=== PATIENT | female | born 1970 | race Caucasian/White ===

== ENCOUNTER 2017-11-21 14:41 | Outpatient (CLI) ==
[2017-11-21 16:11] VITALS: BMI 30.4
== END 2017-11-21 14:42 | disposition home or self-care (01) ==
LOC: DIETCN 14:41
PROVIDERS: ATTEND Family Medicine
DX: E66.9 Obesity, unspecified (principal)

== ENCOUNTER 2018-01-04 08:55 | Emergency (ER) ==
[2018-01-04 09:04] VITALS: BP 147/94; TEMP 98; BMI 29.5
--- NOTE | 2018-01-04 09:56 | CT ---
EXAM: CT scan head without contrast. HISTORY: Left facial and arm numbness COMPARISON: None. TECHNIQUE: Axial scans acquired 5 mm slice thicknesses. MPR coronal and sagittal sequence completed FINDINGS: There is no subdural hematoma or intracranial hemorrhage seen. There is no shift of midli ne structures. Brewer-white matter differentiation is maintained. Ventricles are normal in size. The paranasal sinuses and mastoid air cells appear clear. IMPRESSION: No acute intracranial finding No intracranial hemorrhage, CVA, mass or hydrocephalus is seen. If there is persisting numbness and more detailed assessment of the neural structures is clinically i ndicated , consider follow-up non emergent MRI.
--- NOTE | 2018-01-04 10:06 | ED.PDOC ---
General ED Provider: Dr. CORNELIUS MEJIA Chief Complaint: Non-specific Complaint Stated Complaint: Patient comes to the Er with complaints of chest pain that started 2 weeks ago and has been intermitent. Today she woke up with left facial numbness and left arm numbness. Denies any weakness. Rates the chest pain as 5/10 Denies any Shortness of breath nausea or vomiting. Has had intermitent climecteric symptoms due to initiation of memopause. Time Seen by Physician: 09:00 Information Source: Patient Primary Care Provider: BRYAN WILKINS Nursing and Triage Documentation Reviewed and Agree: Yes Does patient meet sepsis criteria?: No System Inflammatory Response Syndrome: Not Applicable Sepsis Protocol: For patient's 13 years and over: Temp is 96.8 and below OR 101 and greater Pulse >90 BPM Resp >20/minute Acutely Altered Mental Status Are patient's symptoms suggestive of a new infection, such as: -Pneumonia -Skin, Soft Tissue -Endocarditis -UTI -Bone, Joint Infection -Implantable Device -Acute Abdominal Infection -Wound Infection -Meningitis -Blood Stream Catheter Infection -Unknown Review of Systems - Review Of Systems Constitutional: Reports: Sweats Eyes: Reports: No symptoms Ears, Nose, Mouth, Throat: Reports: No symptoms Respiratory: Reports: No symptoms Cardiac: Reports: Chest pain GI: Denies: Nausea, Vomiting : Reports: No symptoms Musculoskeletal: Reports: No symptoms Skin: Reports: No symptoms Neurological: Reports: Anxiety, Numbness (Left face and left arm) Endocrine: Reports: No symptoms Hematologic/Lymphatic: Reports: No symptoms All Other Systems: Reviewed and Negative Past Medical History - Past Medical History Previously Healthy: Yes Endocrine: Reports: None Cardiovascular: Reports: None Respiratory: Reports: None Hematological: Reports: None Gastrointestinal: Reports: None Genitourinary: Reports: None Neuro/Psych: Reports: None Musculoskeletal: Reports: None Cancer: Reports: None Last Menstrual Period: unknown - Surgical History General Surgical History: Reports: Hysterectomy, Cholecystectomy - Family History Family History: Reports: None - Social History Smoking Status: Former smoker Hx Substance Use: No Alcohol Screening: None Physical Exam - Physical Exam Appearance: Ill-appearing Ill-appearing: Mild Pain Distress: Moderate Neck: Supple Respiratory: Airway patent, Breath sounds clear, Breath sounds equal, Respirations nonlabored Cardiovascular: RRR, Pulses normal, No rub, No murmur GI/: Soft, Nontender, No masses, Bowel sounds normal, No Organomegaly Musculoskeletal: Normal strength, ROM intact, No edema, No calf tenderness Neurological: Alert, Oriented Psychiatric: Anxious Interpretation - Radiology Interpretation Radiology Interpretation By: Radiologist Radiology Results: Negative Exam Interpreted: CT Scan (Head ) Radiology Interpretation By: ED Physician Radiology Results: Negative Exam Interpreted: CXR - EKG Interpretation Time of EKG #1: 09:28 Rate: Normal Rhythm: Sinus Ectopy: None ST Segment: Normal Interpretation: Normal EKG. Critical Care Note - Critical Care Note Total Time (mins): 0 Course - Course Hematology/Chemistry: 01/04/18 09:05 01/04/18 09:05 Orders, Labs, Meds: Lab Review 01/04/18 01/04/18 01/04/18 09:05 09:05 09:05 WBC 8.34 RBC 4.53 Hgb 12.0 Hct 35.8 L MCV 79.0 L MCH 26.5 L MCHC 33.5 RDW Coeff of [place] 12.3 Plt Count 274 Immature Gran % (Auto) 0.2 Neut % (Auto) 61.2 Lymph % (Auto) 30.6 Lake % (Auto) 6.7 Eos % (Auto) 0.8 Baso % (Auto) 0.5 Immature Gran # (Auto) 0.0 Neut # (Auto) 5.1 Lymph # (Auto) 2.6 Lake # (Auto) 0.6 Eos # (Auto) 0.1 Baso # (Auto) 0.0 D-Dimer (Manual) 206.00 Sodium 137.4 Potassium 3.71 Chloride 104.0 Carbon Dioxide 26.1 Anion Gap 11.01 BUN 12.6 Creatinine 0.79 Estimated GFR (MDRD) 78.00 BUN/Creatinine Ratio 15.94 Glucose 118.9 H Calcium 9.45 Total Bilirubin 0.25 AST 33.3 ALT 15.9 Alkaline Phosphatase 74.1 Total Creatine Kinase 43.4 Troponin I < 0.012 Total Protein 7.78 Albumin 4.21 Globulin 3.57 Albumin/Globulin Ratio 1.17 01/04/18 11:00 WBC RBC Hgb Hct MCV MCH MCHC RDW Coeff of [place] Plt Count Immature Gran % (Auto) Neut % (Auto) Lymph % (Auto) Lake % (Auto) Eos % (Auto) Baso % (Auto) Immature Gran # (Auto) Neut # (Auto) Lymph # (Auto) Lake # (Auto) Eos # (Auto) Baso # (Auto) D-Dimer (Manual) Sodium Potassium Chloride Carbon Dioxide Anion Gap BUN Creatinine Estimated GFR (MDRD) BUN/Creatinine Ratio Glucose Calcium Total Bilirubin AST ALT Alkaline Phosphatase Total Creatine Kinase Troponin I < 0.012 Total Protein Albumin Globulin Albumin/Globulin Ratio Orders Category Date Time Status EKG-(ED ONLY) Stat CARDIO 01/04/18 09:12 Completed CBC W/ AUTO DIFF Stat LAB 01/04/18 09:05 Completed COMPREHENSIVE METABOLIC PANEL Stat LAB 01/04/18 09:05 Completed CREATINE KINASE Stat LAB 01/04/18 09:05 Completed D-DIMER Stat LAB 01/04/18 09:05 Completed TROPONIN I Stat LAB 01/04/18 09:05 Completed TROPONIN I Stat LAB 01/04/18 11:00 Completed Ketorolac Tromethamine [Toradol] MEDS 01/04/18 11:08 Discontinued 30 mg IM ONCE STA CHEST, 1V AP ONLY Stat RADS 01/04/18 09:[address] HEAD W/O CONTRAST Stat RADS 01/04/18 09:19 Completed Medications Discontinued Medications Generic Name Dose Route Start Last Admin Trade Name Freq PRN Reason Stop Dose Admin Ketorolac Tromethamine 30 mg 01/04/18 11:08 01/04/18 11:41 Toradol IM 01/04/18 11:09 30 mg ONCE STA Administration Vital Signs: Temp Pulse Resp BP Pulse Ox 01/04/18 08:56 98.0 F 100 H 20 147/94 H 98 VAN Risk Score Age >/= 65: No >/= 3 CAD Risk Factors: No Known CAD (Stenosis >/= 50%): No ASA Use in Past 7 Days: No Severe Angina (>/= 2 episodes in 24 hours): No EKG ST Changes >/= 0.5mm: No Postive Cardiac Marker: No VAN Total Score: 0 VAN Risk Score: Risk Score Odds of by 30D 0 0.1 (0.1-0.2) 1 0.3 (0.2-0.3) 2 0.4 (0.3-0.5) 3 0.7 (0.6-0.9) 4 1.2 (1.0-1.5) 5 2.2 (1.9-2.6) 6 3.0 (2.5-3.6) 7 4.8 (3.8-6.1) Departure - Departure Time of Disposition: 11:48 Disposition: HOME SELF-CARE Discharge Problem: Anxiety attack Chest pain Qualifiers: Chest pain type: chest pain on breathing Qualified Code(s): R07.1 - Chest pain on breathing Instructions: Chest Pain (ED), Anxiety (ED) Condition: Stable Pt referred to PMD for follow-up: Yes IPMP verified?: No Additional Instructions: Stop taking Phetaramine until you talked to your doctor Take Anxiety Medications as prescribed Follow up with PCP in 3 days Prescriptions: Lorazepam 0.5 mg PO BID PRN #12 tablet PRN Reason: Anxiety Allergies/Adverse Reactions: Allergies aspirin [From [facility]-[place] Plus Cold/Cough] Adverse Reaction (Verified 01/04/18 09:05) chlorpheniramine [From [place] Plus Cold/Cough] Adverse Reaction (Verified 01/04/18 09:05) ciprofloxacin [From Cipro] Adverse Reaction (Verified 01/04/18 09:05) dextromethorphan [From [place] Plus Cold/Cough] Adverse Reaction (Verified 01/04/18 09:05) ibuprofen Adverse Reaction (Verified 01/04/18 09:05) phenylpropanolamine [From [place] Plus Cold/Cough] Adverse Reaction ( Verified 01/04/18 09:05) Home Medications: Ambulatory Orders Bupropion HCl [Wellbutrin Xl] 150 mg PO DAILY 01/04/18 Levothyroxine Sodium [Synthroid] 175 mcg PO DAILY 01/04/18 Lorazepam 0.5 mg PO BID PRN #12 tablet 01/04/18 Phentermine HCl 15 mg PO DAILY 01/04/18 Disposition Discussed With: Patient
[2018-01-04] MEDS ORDERED: TORADOL IM STA (11:08)
--- NOTE | 2018-01-04 13:26 | DI ---
EXAMINATION: AP chest radiograph. HISTORY: Chest pain COMPARISON: 08/30/2011 FINDINGS: No focal consolidation, pleural effusion or pneumothorax is identified. The cardiomediastinal silhouette is within normal limits. IMPRESSION: No acute cardiopulmonary findings.
== END 2018-01-04 12:11 | disposition home or self-care (01) ==
LOC: ED 08:55
DX: F41.9 Anxiety disorder, unspecified (principal); R07.1 Chest pain on breathing
CPT/HCPCS: 36415; 80053; 82550; 84484; 85025; 85379; 93005; 93010; 96372; 99283